=== PATIENT | female | born 1995 | race Caucasian/White ===

== ENCOUNTER 2022-01-03 20:51 | Emergency (ER) | payer MEDICAID ==
[2022-01-03] MEDS ORDERED: Sodium Chloride 0.9% 10 ML Syringe FLUSH PRN (20:57)
[2022-01-03] MEDS ORDERED: Ondansetron 4 MG/2 ML SDV IVPUSH ONE (20:57)
[2022-01-03] MEDS ORDERED: Sodium Chloride 0.9% 1,000 ML IV SCH (21:00)
[2022-01-03] MEDS ORDERED: HYDROmorphone 0.5 MG/0.5 ML Syringe IVPUSH ONE (21:27)
[2022-01-03 21:37] LABS: ESTIMATED GFR 90 mL/min (>60)
[2022-01-03] MEDS ORDERED: Iopamidol 612 MG/ML 100 ML Bottle IV SCH (22:15)
[2022-01-03] MEDS ORDERED: Sodium Chloride 0.9% 75 ML IV SCH (22:15)
[2022-01-03] MEDS ORDERED: Prochlorperazine 10 MG/2 ML SDV IVPUSH ONE (22:26)
== END 2022-01-03 23:37 | disposition home or self-care (01) ==
LOC: JP.ED 20:51
DX: K52.9 Noninfective gastroenteritis and colitis, unspecified (principal); Z88.8 Allergy status to other drugs, medicaments and biological substances; Z88.6 Allergy status to analgesic agent; Z86.16 Personal history of COVID-19; Z90.49 Acquired absence of other specified parts of digestive tract; Z20.822 Contact with and (suspected) exposure to COVID-19
CPT/HCPCS: 36415; 74177; 80053; 81001; 81025; 83605; 83690; 85025; 87635; 96361; 96374; 96375; 99284; J0780; J1170; J2405; J3490; J7030; Q9967; U0002